=== PATIENT | female | born 2000 | race African-American/Black ===

== ENCOUNTER 2020-11-18 16:40 | Emergency (ER) | payer SELFPAY ==
[~2020-11-18] VITALS: Ht 160 cm; Wt 150.0 kg
[2020-11-18 20:00] VITALS: BP 127/84
== END 2020-11-18 20:20 | disposition home or self-care (01) ==
LOC: ER 16:40
DX: M54.5 Low back pain (principal); V43.62XA Car passenger injured in collision with other type car in traffic accident, initial encounter; Y93.89 Activity, other specified; Y92.481 Parking lot as the place of occurrence of the external cause
CPT/HCPCS: 72100; 81025; 99283